=== PATIENT | male | born 2005 | race Caucasian/White ===

== ENCOUNTER 2023-09-15 17:47 | Emergency (ER) | payer BC ==
[~2023-09-15] VITALS: Ht 177.8 cm; Wt 58.6 kg
[2023-09-15 17:58] VITALS: TEMP 97.6
[2023-09-15 20:47] VITALS: BP 119/81; PULSE 72
== END 2023-09-15 20:48 | disposition home or self-care (01) ==
LOC: COL.ER 17:47
DX: F41.9 Anxiety disorder, unspecified (principal)

== ENCOUNTER 2023-11-12 16:01 | Emergency (ER) | payer BC ==
[~2023-11-12] VITALS: Ht 180.3 cm; Wt 57.3 kg
[2023-11-12 16:05] VITALS: TEMP 98.2
[2023-11-12 17:17] LABS: BASO % 0.5 % (0.0-2.0); EOS # 0.1 K/mm3 (0.0-0.7); EOS % 1.4 % (0.0-4.0); GRAN # 4.5 K/mm3 (1.4-6.5); GRAN % 71.1 % (42.2-75.2); HEMATOCRIT 44.9 % (36.0-47.0); LYMPH # 1.3 K/mm3 (1.2-3.4); MEAN CELL VOLUME 91 fl (80.0-95.0); MEAN CORPUSCULAR HEMOGLOBIN 30 pg (26-32); MEAN CORPUSCULAR HGB CONC 33 g/dl (33.0-37.0); MEAN PLATELET VOLUME 10.2 fl (7.4-10.4); MONO # 0.4 K/mm3 (0.1-0.6); MONO % 5.8 % (1.7-9.3); PLATELET COUNT 271 K/mm3 (130-400); RED BLOOD COUNT 4.94 M/mm3 (4.20-5.60); REDCELL DISTRIBUTION WIDTH-CV 13.1 % (11.5-14.5)
[2023-11-12 17:37] LABS: ALBUMIN 4.6 gm/dL (3.5-5.0); CREATININE, serum 0.77 mg/dL (0.72-1.25); POTASSIUM 3.9 mmol/L (3.5-4.5); TOTAL PROTEIN 8.5 gm/dL (6.2-8.1)
[2023-11-12] MEDS ORDERED: Ibuprofen 200 MG TAB PO ONE (17:45)
[2023-11-12 17:47] LABS: BILIRUBIN,TOTAL 0.3 mg/dL (0.2-1.2)
[2023-11-12 18:13] LABS: C-REACTIVE PROTEIN 0.05 mg/dL (0.00-0.50)
[2023-11-12] MEDS ORDERED: Ketorolac 60 MG/2 ML VIAL IM ONE (18:30)
[2023-11-12 18:38] VITALS: BP 110/80; PULSE 76
== END 2023-11-12 18:41 | disposition home or self-care (01) ==
LOC: COL.ER 16:01
PROVIDERS: Family Medicine
DX: R10.31 Right lower quadrant pain (principal); R10.13 Epigastric pain; Z98.890 Other specified postprocedural states
CPT/HCPCS: J1885

== ENCOUNTER 2024-06-04 21:27 | Emergency (ER) | payer BC ==
[~2024-06-04] VITALS: Ht 180.3 cm; Wt 58.6 kg
[2024-06-04 21:39] VITALS: BP 149/84; TEMP 97.3
[2024-06-04 23:06] VITALS: PULSE 85
== END 2024-06-04 23:07 | disposition home or self-care (01) ==
LOC: COL.ER 21:27
DX: J02.9 Acute pharyngitis, unspecified (principal)